=== PATIENT | female | born 1990 | race Caucasian/White ===

== ENCOUNTER → 2020-01-17 16:45 | Outpatient (CLI) | payer OTHER, SELFPAY ==
[2020-01-17 19:59] LABS: HCG,Quantitative 241 mIU/ml (0-5.42)
== END ==
PROVIDERS: Visit Provider Obstetrics & Gynecology
DX: Z32.00 Encounter for pregnancy test, result unknown (principal)
CPT/HCPCS: 36415; 84702

== ENCOUNTER → 2020-02-11 14:49 | Outpatient (CLI) | payer BC, SELFPAY ==
--- NOTE | 2020-02-11 14:53 | US_ITS ---
PROCEDURE: US OB TRANSVAGINAL CLINICAL INDICATION: US OB Dates COMPARISON: No exams were available for comparison FINDINGS: An intrauterine gestational sac is present with a pole with a crown-rump length of 1.66cm correlating to gestational age of 8weeks 1day. heart tones are present with an FHR of 186bpm. Yolk sac is noted. 2 cm left corpus luteum cyst is noted. IMPRESSION: Live intrauterine gestation at 8 weeks 1 day Estimated due date by Ultrasound is 09/21/2020 Dictated by: Julio Cesar Freeman MD 02/11/2020 16:06 Electronically signed by Julio Cesar Freeman MD in [place] 02/11/2020 16:06
== END ==
PROVIDERS: Visit Provider Obstetrics & Gynecology
DX: O26.841 Uterine size-date discrepancy, first trimester (principal)
CPT/HCPCS: 76817

== ENCOUNTER → 2020-03-14 09:39 | Outpatient (CLI) | payer OTHER, SELFPAY ==
[2020-03-14 10:17] LABS: Basophils # 0.1 K/mm3 (0-0.2); Basophils % 0.7 % (0.1-2.0); Eosinophils # 0.7 K/mm3 (0.0-0.4); Hemoglobin 14.7 g/dL (12.2-16.2); Lymphocytes # 1.6 K/mm3 (0.7-4.5); Lymphocytes % 20.1 % (10-50); Mean Corpuscular HGB Conc 35.8 g/dL (31.8-35.4); Mean Corpuscular Hemoglobin 32.3 pg (27.0-31.2); Mean Corpuscular Volume 90.1 fl (81-99); Mean Platelet Volume 7.7 fl (7.4-10.4); Monocytes # 0.3 K/mm3 (0.1-1.0); Monocytes % 3.7 % (1.7-9.3); Neutrophils # 5.3 K/mm3 (1.8-7.8); Neutrophils % 66.3 % (37.0-80.0); Platelet Count 297 K/mm3 (142-424); Red Blood Count 4.55 M/mm3 (4.20-5.40); Red Cell Distribution Width 12.8 % (11.5-17.5); White Blood Count 7.9 K/mm3 (4.8-10.8)
[2020-03-14 10:24] LABS: Amphetamine/Metha Screen,Urine Negative ng/ml (<1000); Benzodiazepines Screen,Urine Negative ng/ml (<200)
[2020-03-14 10:25] LABS: Barbiturates Screen,Urine Negative ng/ml (<200); Methadone Screen,Urine Negative ng/ml (<300)
[2020-03-14 10:26] LABS: Cannabinoid Screen,Urine Negative ng/ml (<50)
[2020-03-14 10:27] LABS: Cocaine Screen,Urine Negative ng/ml (<300); Opiate Screen,Urine Negative ng/ml (<300)
[2020-03-14 10:28] LABS: Phencyclidine Screen,Urine Negative ng/ml (<25)
[2020-03-15 15:28] LABS: HIV Screen 4th Generation wRfx Non Reactive (Non Reactive); Hepatitis B Surface Antigen Negative (Negative); Hepatitis C Antibody 0.2 s/co ratio (0.0-0.9); Rapid Plasma Reagin Ab Titer Non Reactive (NonRea<1:1)
[2020-03-16 08:37] LABS: Rubella Antibodies, IgG 4.73 index (Immune >0.99)
== END ==
PROVIDERS: Visit Provider Obstetrics & Gynecology
DX: Z34.90 Encounter for supervision of normal pregnancy, unspecified, unspecified trimester (principal)
CPT/HCPCS: 36415; 80305; 85025; 86592; 86703; 86762; 86850; 87340; 87380; G0432

== ENCOUNTER → 2020-05-05 10:14 | Outpatient (CLI) | payer OTHER, MEDICAID, SELFPAY ==
--- NOTE | 2020-05-05 10:15 | US_ITS ---
PROCEDURE: US OB /MATERNAL DETAIL CLINICAL INDICATION: US OB Complete COMPARISON: US US OB TRANSVAGINAL from 02/11/2020 FINDINGS: There is a single live fetus present which is in cephalic presentation. heart body motion noted. The cervix is closed and measures 4 cm. The placenta is posterior and grade 1. There is average amount of amniotic fluid.. Complete survey performed and was unremarkable on the submitted images as in PACS. No discrete anomalies identified on survey imaging by technologist. Active fetus. Three-vessel cord with satisfactory umbilical cord insertion. 4- chamber heart noted. Survey of brain & ventricles Unremarkable. Face and neck survey unremarkable. Diaphragm and chest views unremarkable. Abdomen: Both kidneys noted and unremarkable. Stomach noted and satisfactory. Spine: Survey of the spine satisfactory with no anomalies identified nor imaged. Both arms and legs noted. Amniotic Fluid: Adequate. Maternal adnexa: No significant findings. Measurements: Average ultrasound age 20weeks. Gestational Age 20weeks 1day Estimated due date by ultrasound age 0109/22/2020. Estimated weight 332g BPD = 20weeks OFD = 20weeks 2days HC = 19weeks 3days AC = 20weeks 1day FL = 20weeks 2days Growth Percentile= 42Percent% Heart Rate = 143bpm Cerebellum = 20weeks 1day Humerus = HC/AC is 1.13 CI is 0.78 FL/BPD is 0.71 FL/AC is 0.22 IMPRESSION: Live IUP at 20 weeks and cephalic presentation. No obvious anomalies. Please see above for detail Dictated by: Julio Cesar Freeman MD 05/06/2020 09:00 Julio Cesar Freeman MD in [place] 05/06/2020 09:00
== END ==
PROVIDERS: PCP Obstetrics & Gynecology; Visit Provider Obstetrics & Gynecology
DX: Z36.0 Encounter for antenatal screening for chromosomal anomalies (principal)
CPT/HCPCS: 76811

== ENCOUNTER → 2020-06-09 07:14 | Outpatient (CLI) | payer OTHER, MEDICAID, SELFPAY ==
[2020-06-09 07:48] LABS: Glucose,Fasting 80 mg/dl (74-100)
[2020-06-09 10:00] LABS: Glucose 1 Hour 109 mg/dL (74-100)
== END ==
PROVIDERS: Visit Provider Obstetrics & Gynecology
DX: Z34.90 Encounter for supervision of normal pregnancy, unspecified, unspecified trimester (principal)
CPT/HCPCS: 36415; 82951

== ENCOUNTER → 2020-08-15 13:27 | Outpatient (CLI) | payer BC, MEDICAID, SELFPAY ==
--- NOTE | 2020-08-15 13:28 | US_ITS ---
PROCEDURE: US OB FOLLOW UP CLINICAL INDICATION: Growth ALIYAH COMPARISON: No exams were available for comparison FINDINGS: There is a single live fetus present which is in in cephalic presentation. heart and body motion noted. Heart rate is 140 BPM. Placenta is posterior and lateral and grade 2. ALIYAH is 10 cm. Average ultrasound age is 34 weeks 6 days with an estimated weight of 2568 g which is 54th percentile. BPD 34 weeks 2 days OFD 35 weeks 6 days HC 34 weeks 5 days AC 35 weeks 2 days FL 35 weeks 0 days. HC/AC 0.99 CI 77 percent FL/BPD 80 percent FL/AC 22 percent IMPRESSION: Live IUP at 34 weeks 6 days as described above. Estimated weight is 2568 g which is 54% ALIYAH 10 cm Dictated by: Julio Cesar Freeman MD 08/16/2020 06:27 Julio Cesar Freeman MD in [place] 08/16/2020 06:27
== END ==
PROVIDERS: Visit Provider Obstetrics & Gynecology
DX: O16.9 Unspecified maternal hypertension, unspecified trimester (principal); Z3A.35 35 weeks gestation of pregnancy
CPT/HCPCS: 76816

== ENCOUNTER → 2020-08-21 16:48 | Outpatient (CLI) | payer BC, MEDICAID, SELFPAY | PROVIDERS: Visit Provider Obstetrics & Gynecology | DX: Z34.90 Encounter for supervision of normal pregnancy, unspecified, unspecified trimester (principal) | CPT/HCPCS: 86403 ==

== ENCOUNTER → 2020-09-05 16:52 | Outpatient (CLI) | payer BC, OTHER, SELFPAY ==
[2020-09-05 17:31] LABS: Basophils % 0.2 % (0.1-2.0); Eosinophils # 0.4 K/mm3 (0.0-0.4); Hematocrit 34.3 % (37.0-47.0); Hemoglobin 11.7 g/dL (12.2-16.2); Lymphocytes # 1.7 K/mm3 (0.7-4.5); Lymphocytes % 13.4 % (10-50); Mean Corpuscular HGB Conc 34.1 g/dL (31.8-35.4); Mean Corpuscular Hemoglobin 29.6 pg (27.0-31.2); Mean Corpuscular Volume 86.9 fl (81-99); Mean Platelet Volume 8.3 fl (7.4-10.4); Monocytes # 0.5 K/mm3 (0.1-1.0); Neutrophils # 10.1 K/mm3 (1.8-7.8); Neutrophils % 79.3 % (37.0-80.0); Platelet Count 230 K/mm3 (142-424); Red Blood Count 3.95 M/mm3 (4.20-5.40); Red Cell Distribution Width 15.6 % (11.5-17.5); White Blood Count 12.8 K/mm3 (4.8-10.8)
[2020-09-05 17:47] LABS: Alanine Aminotransferase 16 U/L (12-78); Albumin Level 3.2 g/dl (3.5-5.0); Albumin/Globulin Ratio 1.1 (1.1-1.8); Alkaline Phosphatase 186 U/L (38-126); Anion Gap 9.7 mEq/L (5-15); Aspartate Amino Transferase 26 U/L (14-36); Bilirubin,Total 0.3 mg/dl (0.2-1.3); Blood Urea Nitrogen 3 mg/dl (7-17); Calcium 9.3 mg/dl (8.4-10.2); Carbon Dioxide 23 mmol/L (22.0-30.0); Chloride 105 mmol/L (98-107); Estimated Glomerular Filt Rate 146 ml/min (>60); GFR (African American) 177 ML/MIN (>60); Globulin 2.8 g/dL (1.3-3.2); Glucose 129 mg/dl (74-100); Potassium 3.7 mmoL/L (3.5-5.1); Sodium 134 mmol/L (136-145)
[2020-09-05 18:10] LABS: Coronavirus 19 IgG Antibody Negative (Negative); Coronavirus 19 IgM Antibody Negative (Negative)
== END ==
PROVIDERS: Visit Provider Obstetrics & Gynecology
DX: Z01.818 Encounter for other preprocedural examination (principal); Z03.818 Encounter for observation for suspected exposure to other biological agents ruled out; O82 Encounter for cesarean delivery without indication
CPT/HCPCS: 36415; 80053; 85025; 86328; 86850

== ENCOUNTER 2020-09-07 05:15 | Inpatient (IN) | payer BC, OTHER, SELFPAY ==
[2020-09-07] VITALS (7 sets, daily range): BP systolic 104–143; BP diastolic 62–85; PULSE 67–97; RESP 16–20; TEMP 36.1–37.1; O2SAT 96–100; BMI 32.4; BMI 32.3
[2020-09-07 05:59] LABS: Microscopic, Urine URINE MICROSCOPIC (MICROSCOPIC)
[2020-09-07 06:01] LABS: Bilirubin,Urine Negative (Negative); Blood, Urine Negative (Negative); Color,Urine YELLOW (Yellow); Glucose,Urine (UA) Negative (Negative); Ketones,Urine Negative (Negative); Leukocyte Esterase,Urine 3+ (Negative); Nitrate,Urine Negative (Negative); Protein,Urine Negative (Negative); Urobilinogen,Urine 0.2 EU/dl (0.2)
[2020-09-07 06:05] LABS: Appearance,Urine Slightly Cloudy (Clear)
[2020-09-07 06:12] LABS: Amphetamine/Metha Screen,Urine Negative ng/ml (<1000); Barbiturates Screen,Urine Negative ng/ml (<200)
[2020-09-07 06:13] LABS: Benzodiazepines Screen,Urine Negative ng/ml (<200)
[2020-09-07 06:14] LABS: Cannabinoid Screen,Urine Negative ng/ml (<50); Cocaine Screen,Urine Negative ng/ml (<300)
[2020-09-07 06:15] LABS: Methadone Screen,Urine Negative ng/ml (<300)
[2020-09-07 06:16] LABS: Opiate Screen,Urine Negative ng/ml (<300); Phencyclidine Screen,Urine Negative ng/ml (<25)
[2020-09-07 06:23] LABS: Bacteria,Urine 1+ /lpf
--- NOTE | 2020-09-07 07:40 | HMH.OBAPHP ---
OB - H&P: HPI Antepartum - History of Present Illness Chief complaint: Elective repeat CS and tubal ligation History of present illness: 38 0/7, elective repeat CS patient was originally scheduled for surgery at 39 weeks but was moved up to 38 weeks because of decreased movement and low amniotic fluid noted during office appointment 37 5/7 Irregular contractions but no vaginal bleeding or leakage of fluid Desires permanent sterilization with tubal ligation [facility] History I have reviewed the patient's past medical history: Yes Medical History: Reports:: Asthma *Have you ever received a pneumonia vaccine?: No *Have you received a flu vaccine this season?: No Other Surgeries: Yes: (11/11/2013) Amputation: No Fractures: No - *Social History Smoking Status: Never smoker Alcohol Intake: current Alcohol Intake Frequency:: holidays/special occasions only Substance Use Type: denies use *Occupational Status:: employed Household Members: family *Travel in the last 8 weeks: None Family Hx:: Non-contributory : 2 Para: 1 Review of Systems - Review of Systems Review of systems:: pertinent systems reviewed and negative unless documented below - Constitutional Denies chills, Denies fever(s) - Eyes Denies double vision - *Cardiovascular Denies chest pain - *Respiratory Denies cough, Denies shortness of breath - *Genitourinary Denies abnormal vaginal bleeding - *Neurologic Denies headache(s) Meds Home Medications Medication Instructions Recorded Confirmed Type prenat.vits,leonor,[id number] 1 tab PO DAILY 02/14/20 09/07/20 History Allergies Allergy/AdvReac Type Severity Reaction Status Date / Time No Known Allergies Allergy Verified 09/05/20 15:14 OB - H&P: Exam - Physical Exam Vital signs: Temp Pulse Resp BP Pulse Ox 98.7 F 97 H 18 123/65 98 09/07/20 06:26 09/07/20 06:26 09/07/20 06:26 09/07/20 06:26 09/07/20 06:26 - Constitutional no acute distress - Routine HEENT Exam Head: Present: normocephalic, atraumatic Eye: Absent: conjunctival icterus ENT: Present: mucous membranes moist - Routine Neck Exam Present: supple - Routine Respiratory Exam Present: CTA bilaterally - Routine Cardiovascular Exam Present: RRR - Routine Abdominal Exam Present: soft. Absent: tenderness, distended - Routine Extremities Exam Present: edema - Routine Skin Exam Present: dry, warm - Routine Neurological Exam Present: alert, oriented X3 - Routine Psychiatric Exam Present: normal affect OB - Results - Labs Labs: Urine 09/07/20 Range/Units 05:45 Urine Color Yellow (Yellow) Urine Appearance Slightly cloudy (Clear) Urine pH 7.0 (5.0-8.5) Ur Specific [place] 1.020 (1.005-1.030) Urine Protein Negative (Negative) Urine Glucose (UA) Negative (Negative) OB - A/P Antepartum (1) 38 weeks gestation of Status: Acute (2) Decreased movement Status: Acute (3) Oligohydramnios Status: Acute (4) Previous section Status: Acute (5) tubal ligation planned Status: Acute - Additional Plan Additional Information:: Repeat CS with tubal ligation
--- NOTE | 2020-09-07 09:05 | HMH.ANESCL ---
[facility] Anesthesia Checklist - Patient Identification Patient Identification: Arm Band - Structural Data Admitted From: Inpatient Planned Operative Procedure/s: Repeat C/S with BTL Consent for Planned Operative Procedure(s) Verified: Yes Verified Documents: Surgical Consent, History and Physical - NPO Status Verified Time NPO: 00:00 - Additional verifications Anesthesia Reactions: No - Airway Assessment C-Spine Mobility Assessed: Yes TMJ Mobility Assessed: Yes Dentition: Good Dentition - Neurological Assessment Level of Consciousness: Awake, Alert - Anesthesia Plan Anesthesia Risk discussed: Yes Anesthesia Plan: Verified ASA Class: II Anesthesia Type: Spinal [facility] History I have reviewed the patient's past medical history: Yes Medical History: Reports:: Asthma *Have you ever received a pneumonia vaccine?: No *Have you received a flu vaccine this season?: No Anesthesia experience/problems:: nac Other Surgeries: Yes: (11/11/2013) Amputation: No Fractures: No - *Social History Smoking Status: Never smoker Alcohol Intake: current Alcohol Intake Frequency:: holidays/special occasions only Substance Use Type: denies use *Occupational Status:: employed Household Members: family *Travel in the last 8 weeks: None Family Hx:: Non-contributory Para: 1
--- NOTE | 2020-09-07 10:19 | P.OP_ITS ---
Date of procedure: 09/07/20 Pre-op Diagnosis:: 1. 38 wks gestation 2. Decreased movement 3. Oligohydramnios 4. Previous C Section 5. Undesired fertility Post-op Diagnosis:: same Procedure performed:: 1. Repeat Low Transverse C Section 2. Bilateral Tubal Ligation Surgeon:: Elizabeth Montes MD OIL FIELD LABORER:: Vargas Noelle Anesthesia: spinal Estimated blood loss (mL): 800 Operative findings:: vigorous liveborn femal infant grossly normal uterus, fallopian tubes and ovaries Operative note:: The patient was taken to the OR and spinal was administered without difficulty. She was prepped and draped in normal sterile fashion. A pfannenstiel skin incision was made with the scalpel and carried down to the fascia. The fascia was incised in the midline and sharply dissected off the rectus muscles. The muscles were in the midline and the peritoneum was entered sharply and extended bluntly. The Demetrio-O self retaining retractor was placed in the abdomen and a bladder flap was created. The uterus was incised in the lower uterine segment in a transverse fashion and extended bluntly. Amniotomy was performed and clear fluid noted. The infant was delivered in controlled fashion, without complication or shoulder dystocia. The was vigorous at and handed to awaiting pediatricians for evaluation after cord clamped and cut. Cord blood was collected and a cord segment was preserved. The placenta was manually extracted and noted to be intact. The uterus was repaired with 0- vicryl in a running/locked fashion. A second imbricating layer was placed for hemostasis. Gel foam was placed over the lower uterine segment and the bladder flap was closed over this. The peritoneum was closed with 2-0 vicryl in a running fashion. The fascia was closed with #1 vicryl in a running fashion. The subcutaneous fat was closed with 2-0 vicryl in an interrupted fashion. The skin was closed with lashaun. The patient tolerated the procedure well. Sponge, lap, needle and instrument counts were correct x 2. She was taken to PACU awake and in stable condition. Condition: stable Disposition: PACU Specimens:: Placenta Complications:: none
--- NOTE | 2020-09-07 11:16 | P.PN_ITS ---
[facility] Anesthesia Record Part II Discharge Time: 09:35 Destination: Obstetric PACU nurse assessment reviewed?: Yes Patient Condition:: Good Anesthesia Complications:: None Swallowing reflex intact?: Yes Cyanosis?: No Blood Pressure: 130/85 Pulse Rate: 71 Temperature: 97.8 F Mental Status: Alert & Oriented Pain level:: 0 Nausea and/or vomitting:: None Intake, IV Amount: 0
--- NOTE | 2020-09-07 12:38 | HMH.PHAVTE ---
[facility] Pharmacy VTE Monitoring - Patient Demographics Admission date: 09/07/20 Report Date: 09/07/20 Time: 12:38 Allergies/Adverse Reactions: Patient Allergies No Known Allergies Allergy (Verified 09/05/20 15:14) Height: 1.65 m Weight: 88.224 kg Patient Problems: Current Active Problems 38 weeks gestation of (Acute) Decreased movement (Acute) Oligohydramnios (Acute) tubal ligation planned (Acute) Previous section (Acute) - Prophylaxis VTE Prophylaxis Ordered?: Yes Types of VTE Prophylaxis: IPCS Thigh High Location of Applied Device: Bilateral Lower Extremeties
[2020-09-07 13:19] LABS: Microscopic,Cath URINE MICROSCOPIC (MICROSCOPIC)
[2020-09-07 14:02] LABS: Appearance,Urine/Cath CLEAR (Clear); Bilirubin,Cath Negative (Negative); Blood, Urine/Cath Negative (Negative); Color,Urine/Cath YELLOW (Yellow); Glucose,Urine/Cath (UA) Negative (Negative); Ketones,Urine/Cath 1+ (Negative); Leukocyte Esterase,Cath Negative (Negative); Nitrate,Cath Negative (Negative); PH,Urine/Cath 7.5 (5.0-8.5); Protein,Urine/Cath Negative (Negative); Urobilinogen,Cath 0.2 EU/dl (0.2)
[2020-09-07 14:29] LABS: RBC,Urine/Cath Occasional # /hpf (0-3)
[2020-09-08 04:53] VITALS: BP 101/53; PULSE 78; RESP 16; TEMP 36.6; O2SAT 99
[2020-09-08 07:24] LABS: Hematocrit 33.5 % (37.0-47.0); Hemoglobin 11.1 g/dL (12.2-16.2)
[2020-09-08 08:00] VITALS: BP 101/51; PULSE 86; RESP 20; TEMP 37; O2SAT 97
--- NOTE | 2020-09-08 11:04 | P.PN_ITS ---
Internal Medicine - PN: Subj *Date: 09/08/20 *Time: 11:04 Interval history: POD #1 s/p repeat CS and BTL No complaints Tolerating regular diet Ambulating and voiding without difficulty Lochia small and pain control sufficient Exam Vital signs and Labs for Last 24 Hours: Temp Pulse Resp BP Pulse Ox 98.6 F 86 20 101/51 L 97 09/08/20 08:00 09/08/20 08:00 09/08/20 08:00 09/08/20 08:00 09/08/20 08:00 Laboratory Results - last 24 hr 09/07/20 07:50: Urine Color Yellow, Urine Appearance Clear, Urine pH 7.5, Ur Specific [place] 1.010, Urine Protein Negative, Urine Glucose (UA) Negative, Urine Ketones 1+, Urine Blood Negative, Urine Nitrate Negative, Urine Bilirubin Negative, Urine Urobilinogen 0.2, Ur Leukocyte Esterase Negative, Urine RBC Occasional, Urine WBC 3-5, Ur Squamous Epith Cells 3-5 09/08/20 06:55: Hgb 11.1 L, Hct 33.5 L I & O for Last 24 hours: Intake & Output 09/05/20 09/06/20 09/07/20 09/08/20 11:59 11:59 11:59 11:59 Intake Total 0 / 0 Output Total 800 / 800 Balance 0 / 0 -800 / -800 Weight 194 lb 8 oz Microbiology Reports for the Last 24 Hours: Microbiology 09/07/20 05:45 Urine,Clean Catch Urine Culture - Preliminary Narrative: CONSTITUTIONAL: no acute distress HEENT: mucous membranes moist PULMONARY: breathing unlabored without audible wheezes CV: no tachycardia or visible JVD; normal LE peripheral pulses ABD: soft, ND; appropriately tender but no rebound/guarding : fundus firm at/below umbilicus SKIN: incision well approximated with no drainage, erythema or induration EXT: 1+ edema LEs NEURO: alert/oriented, no altered mental status PSYCH: appropriate mood and demeanor without anxiety/depression Assessment and Plan (1) 38 weeks gestation of Status: Acute Category: Medical Code(s): Z3A.38 - 38 weeks gestation of (2) Decreased movement Status: Acute Category: Medical Code(s): O36.8190 - Decreased movements, unspecified trimester, not applicable or unspecified (3) Oligohydramnios Status: Acute Category: Medical Code(s): O41.00X0 - Oligohydramnios, unspecified trimester, not applicable or unspecified (4) Previous section Status: Acute Category: Surgical Code(s): Z98.891 - History of uterine scar from previous surgery (5) tubal ligation planned Status: Acute Category: Medical - Assessment and plan all Dx Assessment and Plan for all problems:: Routine postop/ care Continue PNV with FeSO4 Anticipate discharge home tomorrow
[2020-09-08 12:00] VITALS: BP 100/48; PULSE 82; RESP 18; TEMP 36.7; O2SAT 100
--- NOTE | 2020-09-09 10:20 | HMH.OBDCSM ---
General - General Admission date:: 09/07/20 Discharge date: 09/09/20 HPI - History of Present Illness History of present illness: She is a 30-year-old 2 para 1 who was 38 weeks gestational age. She was seen a couple of days prior to her and had oligohydramnios and decreased movement. She has had a previous section and as result of oligohydramnios she was delivered early. Hospital Course Hospital Course: On September 07, 2019 when she underwent a repeat lower segment transverse section and delivered a liveborn male child at 8:07 AM. The baby had Apgars of 7 at 1 minute and 9 at 5 minutes. She had a bilateral tubal ligation at the time of her . She has done well and has remained afebrile with her hospitalization. She is eating and drinking and ambulating. She is bottlefeeding and breast-feeding. Her lochia is normal. Her pain is well controlled. Her incision is clean and dry. She has O+ blood, she is rubella immune and was group B streptococcus negative. Her early head start director Dr. Dupont. She will be discharged home to follow-up with Dr. Montes in approximately 3 weeks time. She has had her lashaun removed and Steri-Strips applied. She was given the usual instructions with respect to limiting her activity, driving and sexual activity. Her condition on discharge is stable and improved. Rhogam Administration: Not Indicated Objective Vital signs: Temp Pulse Resp BP Pulse Ox 98.0 F 82 18 100/48 L 100 09/08/20 12:00 09/08/20 12:00 09/08/20 12:00 09/08/20 12:00 09/08/20 12:00 no acute distress - *Routine HEENT Exam Head: Present: normocephalic Eye: Present: EOMI, PERRL ENT: Present: mucous membranes moist DS: Diagnosis - Discharge Diagnosis (1) 38 weeks gestation of Status: Acute (2) Decreased movement Status: Acute (3) Oligohydramnios Status: Acute (4) Previous section Status: Acute (5) tubal ligation planned Status: Acute Discharge Plan - Patient Discharge Instructions ACTIVITY: No heavy lifting DIET: continue same diet Additional Instructions: no driving, no heavy lifting and nothing in the vagina for 6 weeks Patient Instructions: Depression, Hemorrhage, DI for , DI for Pre-eclampsia, DI for Postoperative Pain, Preventing the Spread of Coronavirus Discharge Instructions - Follow up Plan Follow up with: Elizabeth Montes MD [Staff Physician] - 09/22/20 11:00 am Disposition: Home, Self-Custodial Medications: Home Medications Medication Instructions Recorded Confirmed Type prenat.vits,leonor,[id number] 1 tab PO DAILY 02/14/20 09/07/20 History Oxycodone HCl/Acetaminophen 1 tab PO Q4-6H PRN #12 tab 09/09/20 Rx [Percocet 5/325mg tablet] Prescriptions/Medication Reconciliation: New Oxycodone HCl/Acetaminophen [Percocet 5/325mg tablet] 1 tab PO Q4-6H PRN #12 tab PRN Reason: Severe Pain Continued prenat.vits,leonor,[id number] 1 tab PO DAILY - Problem Reconciliation Problems Reviewed?: Yes
== END 2020-09-09 11:45 | disposition home or self-care (01) | DRG 784 ==
PROVIDERS: Admitting Provider Obstetrics & Gynecology; Visit Provider Obstetrics & Gynecology
PROC: 10D00Z1 Extraction of Products of Conception, Low, Open Approach (ICD-10-PCS; CPT 59514; principal; 2020-09-07 07:30)
DX: O36.8130 Decreased fetal movements, third trimester, not applicable or unspecified (principal); O41.03X0 Oligohydramnios, third trimester, not applicable or unspecified; Z3A.38 38 weeks gestation of pregnancy; Z37.0 Single live birth; O34.211 Maternal care for low transverse scar from previous cesarean delivery; N85.8 Other specified noninflammatory disorders of uterus; Z30.2 Encounter for sterilization
CPT/HCPCS: 59514; 58611; 59025; 80305; 81001; 85014; 85018; 86850; 87086; J0131; J2405

== ENCOUNTER 2020-10-08 12:23 | Emergency (ER) | payer BC, OTHER, SELFPAY ==
[2020-10-08 12:24] VITALS: BP 102/60; PULSE 112; RESP 18; TEMP 37.4; O2SAT 100; BMI 29.0
--- NOTE | 2020-10-08 12:39 | HMH.EDGENADL ---
ED Disposition Clinical Impression: Dehydration Disposition: Home, Self-Care Condition on Discharge: Good Additional Instructions: Please drink plenty of clear fluids. Return immediately if any generalized malaise, concern for dehydration, weakness, or other new concerning symptoms. Referrals: Mir Dupont MD [Primary Care Provider] - - Critical Care Critical Care Time: No Attestation: On 10/08/20, the high probability of a clinically significant, sudden or life threatening deterioration of the following system(s) required my full and direct attention, intervention and personal management. The time I documented below is in addition to time spent performing reported procedures but includes the following listed in this critical care notation. Medical Decision Making - Medical Records Medical records reviewed: Yes: I reviewed the patient's medical records. - Helder Inquiry Pt receiving controlled substance: No Vital Signs: 10/08/20 12:24 10/08/20 13:44 10/08/20 14:16 Temperature 99.3 F Temperature Source Oral Pulse Rate [Right Radial] 112 H 107 H 117 H Respiratory Rate 18 Blood Pressure [Right Arm] 102/60 L 124/78 119/57 L Blood Pressure Mean [Right Arm] 74 93 77 Blood Pressure Source [Right Arm] Automatic Cuff Automatic Cuff Automatic Cuff Blood Pressure Position [Right Arm] Sitting Sitting Sitting 02 Sat by Pulse Oximetry 100 100 98 Oxygen Delivery Method Room Air Room Air Room Air 10/08/20 15:05 Temperature Temperature Source Pulse Rate [Right Radial] 112 H Respiratory Rate Blood Pressure [Right Arm] 104/55 L Blood Pressure Mean [Right Arm] 71 Blood Pressure Source [Right Arm] Automatic Cuff Blood Pressure Position [Right Arm] Sitting 02 Sat by Pulse Oximetry 97 Oxygen Delivery Method Room Air - Lab Data Lab Results 10/08/20 12:39: WBC 13.6 H, RBC 5.26, Hgb 14.8, Hct 46.3, MCV 88.0, MCH 28.2, MCHC 32.1, RDW 14.6, Plt Count 311, MPV 7.0 L, Neut % (Auto) 86.1 H, Lymph % (Auto) 5.3 L, [place] % (Auto) 5.4, Eos % (Auto) 3.0, Baso % (Auto) 0.2, Neut # (Auto) 11.7 H, Lymph # (Auto) 0.7, [place] # (Auto) 0.7, Eos # (Auto) 0.4, Baso # (Auto) 0.0, Total Counted 100, Neutrophils % (Manual) 87 H, Lymphocytes % (Manual) 5 L, Monocytes % (Manual) 6, Eosinophils % (Manual) 2, Platelet Estimate Normal, RBC Morphology Normal 10/08/20 12:39: Sodium 138, Potassium 4.0, Chloride 105, Carbon Dioxide 27, Anion Gap 10.0, BUN 15, Creatinine 0.80, Estimated Creat Clear 126, Estimated GFR 85, Est GFR ( Amer) 103, Glucose 95, Calcium 9.2, Total Bilirubin 0.6, AST 40 H, ALT 45, Alkaline Phosphatase 163 H, Total Protein 7.9 D, Albumin 4.3, Globulin 3.6 H, Albumin/Globulin Ratio 1.2 10/08/20 13:41: Urine Color Yellow, Urine Appearance Clear, Urine pH 7.5, Ur Specific [place] 1.015, Urine Protein Negative, Urine Glucose (UA) Negative, Urine Ketones Negative, Urine Blood Negative, Urine Nitrate Negative, Urine Bilirubin Negative, Urine Urobilinogen 0.2, Ur Leukocyte Esterase Trace, Urine RBC None, Urine WBC Occasional, Ur Squamous Epith Cells 5-10, Urine Bacteria None Result diagrams: 10/08/20 12:39 10/08/20 12:39 Orders (Tests/Meds): ED MEDICATIONS Discontinued Medications Generic Name Dose Route Start Last Admin Trade Name Georges PRN Reason Stop Dose Admin Acetaminophen 650 mg 10/08/20 15:14 10/08/20 15:18 Acetaminophen 325mg Tab PO 10/08/20 15:15 650 mg ONCE ONE Administration Sodium Chloride 1,000 mls @ 999 mls/hr 10/08/20 12:45 10/08/20 12:52 Sod Chlor 0.9% 1000ml Bag IV 10/08/20 13:45 999 mls/hr .Q1H1M ЕЛЕНА Administration Lactated Ringer's 1,000 mls @ 999 mls/hr 10/08/20 15:15 10/08/20 15:18 Lactated Ringer's 1000 Ml Bag IV 10/08/20 16:15 999 mls/hr .Q1H1M ЕЛЕНА Administration Ibuprofen 400 mg 10/08/20 15:07 10/08/20 15:18 Ibuprofen 400 Mg Tablet PO 10/08/20 15:08 400 mg ONCE ONE Administration Ondansetron HCl 4 mg 10/08/20 13:58 10/08/20 13:59 Ondanset
[2020-10-08 12:45] VITALS: BMI 29.0
[2020-10-08 13:02] LABS: Basophils % 0.2 % (0.1-2.0); Eosinophils # 0.4 K/mm3 (0.0-0.4); Hematocrit 46.3 % (37.0-47.0); Hemoglobin 14.8 g/dL (12.2-16.2); Lymphocytes # 0.7 K/mm3 (0.7-4.5); Lymphocytes % 5.3 % (10-50); Mean Corpuscular HGB Conc 32.1 g/dL (31.8-35.4); Mean Corpuscular Hemoglobin 28.2 pg (27.0-31.2); Monocytes # 0.7 K/mm3 (0.1-1.0); Monocytes % 5.4 % (1.7-9.3); Neutrophils # 11.7 K/mm3 (1.8-7.8); Neutrophils % 86.1 % (37.0-80.0); Platelet Count 311 K/mm3 (142-424); Red Blood Count 5.26 M/mm3 (4.20-5.40); Red Cell Distribution Width 14.6 % (11.5-17.5); White Blood Count 13.6 K/mm3 (4.8-10.8)
[2020-10-08 13:03] LABS: Chloride 105 mmol/L (98-107)
[2020-10-08 13:04] LABS: MANUAL DIFFERENTIAL MANUAL DIFFERENTIAL (MANUAL DIFF); Sodium 138 mmol/L (136-145)
[2020-10-08 13:06] LABS: Alanine Aminotransferase 45 U/L (12-78); Alkaline Phosphatase 163 U/L (38-126); Aspartate Amino Transferase 40 U/L (14-36); Bilirubin,Total 0.6 mg/dl (0.2-1.3); Blood Urea Nitrogen 15 mg/dl (7-17); Creatinine Clearance Estimated 126 mL/min (50-200); Estimated Glomerular Filt Rate 85 ml/min (>60); GFR (African American) 103 ML/MIN (>60)
[2020-10-08 13:07] LABS: Albumin Level 4.3 g/dl (3.5-5.0); Albumin/Globulin Ratio 1.2 (1.1-1.8); Calcium 9.2 mg/dl (8.4-10.2); Carbon Dioxide 27 mmol/L (22.0-30.0); Globulin 3.6 g/dL (1.3-3.2); Glucose 95 mg/dl (74-100); Total Protein,Serum 7.9 g/dl (6.3-8.2)
[2020-10-08 13:12] LABS: Eosinophils % 2 % (0-3); Lymphocytes % 5 % (10-50); Monocytes % 6 % (2-9); Neutrophils % 87 % (42-76); Total Cells Counted 100
[2020-10-08 13:13] LABS: Platelet Estimate Normal; RBC Morphology Normal
[2020-10-08 13:44] VITALS: BP 124/78; PULSE 107; O2SAT 100
[2020-10-08 13:51] LABS: Microscopic, Urine URINE MICROSCOPIC (MICROSCOPIC)
[2020-10-08 13:52] LABS: Appearance,Urine CLEAR (Clear); Bilirubin,Urine Negative (Negative); Blood, Urine Negative (Negative); Color,Urine YELLOW (Yellow); Glucose,Urine (UA) Negative (Negative); Ketones,Urine Negative (Negative); Leukocyte Esterase,Urine TRACE (Negative); Nitrate,Urine Negative (Negative); PH,Urine 7.5 (5.0-8.5); Protein,Urine Negative (Negative); Specific Gravity, Urine 1.015 (1.005-1.030); Urobilinogen,Urine 0.2 EU/dl (0.2)
[2020-10-08 13:59] LABS: WBC,Urine Occasional #/hpf (0-3)
[2020-10-08 14:16] VITALS: BP 119/57; PULSE 117; O2SAT 98
[2020-10-08 15:05] VITALS: BP 104/55; PULSE 112; O2SAT 97
--- NOTE | 2020-10-08 15:26 | PC.NURSE ---
pt sitting up in wheelchair eating sandwich
[2020-10-08 16:40] VITALS: BP 106/51; PULSE 104; RESP 18; TEMP 37.4; O2SAT 97
== END 2020-10-08 16:40 | disposition home or self-care (01) ==
PROVIDERS: Emergency Provider Emergency Medicine; PCP Family Medicine
DX: E86.0 Dehydration (principal); J45.909 Unspecified asthma, uncomplicated; G43.709 Chronic migraine without aura, not intractable, without status migrainosus; Z79.899 Other long term (current) drug therapy
CPT/HCPCS: 80053; 81001; 85007; 85025; 96365; 96367; 96375; 99283; J2405

== ENCOUNTER → 2021-05-09 19:49 | Outpatient (CLI) | payer BC, SELFPAY | PROVIDERS: Visit Provider Nurse Practitioner Family | DX: Z20.822 Contact with and (suspected) exposure to COVID-19 (principal); J02.9 Acute pharyngitis, unspecified | CPT/HCPCS: U0003 ==

== ENCOUNTER 2021-08-10 07:41 | Emergency (ER) | payer BC, SELFPAY ==
[2021-08-10 07:41] VITALS: BP 120/78; PULSE 86; RESP 16; TEMP 36.8; O2SAT 97; BMI 29.5
[2021-08-10 08:00] VITALS: BP 118/68; PULSE 96; O2SAT 97
[2021-08-10 08:08] LABS: Basophils # 0.1 K/mm3 (0-0.2); Basophils % 1.1 % (0.1-2.0); Eosinophils # 0.1 K/mm3 (0.0-0.4); Eosinophils % 1.8 % (0.1-12.0); Hematocrit 44.3 % (37.0-47.0); Hemoglobin 15.2 g/dL (12.2-16.2); Lymphocytes # 0.8 K/mm3 (0.7-4.5); Lymphocytes % 13.8 % (10-50); Mean Corpuscular HGB Conc 34.2 g/dL (31.8-35.4); Mean Corpuscular Hemoglobin 31.2 pg (27.0-31.2); Mean Platelet Volume 7.1 fl (7.4-10.4); Monocytes # 0.2 K/mm3 (0.1-1.0); Monocytes % 2.9 % (1.7-9.3); Neutrophils # 4.9 K/mm3 (1.8-7.8); Neutrophils % 80.4 % (37.0-80.0); Platelet Count 344 K/mm3 (142-424); Red Blood Count 4.87 M/mm3 (4.20-5.40); White Blood Count 6.1 K/mm3 (4.8-10.8)
[2021-08-10 08:15] LABS: Chloride 109 mmol/L (98-107); Potassium 3.9 mmoL/L (3.5-5.1); Sodium 142 mmol/L (136-145)
[2021-08-10 08:18] LABS: Alanine Aminotransferase 15 U/L (12-78); Albumin Level 4.3 g/dl (3.5-5.0); Albumin/Globulin Ratio 1.5 (1.1-1.8); Alkaline Phosphatase 74 U/L (38-126); Anion Gap 11.9 mEq/L (5-15); Aspartate Amino Transferase 24 U/L (14-36); Bilirubin,Total 0.2 mg/dl (0.2-1.3); Blood Urea Nitrogen 13 mg/dl (7-17); Carbon Dioxide 25 mmol/L (22.0-30.0); Creatinine Clearance Estimated 169 mL/min (50-200); Estimated Glomerular Filt Rate 117 ml/min (>60); GFR (African American) 142 ML/MIN (>60); Globulin 2.9 g/dL (1.3-3.2); Total Protein,Serum 7.2 g/dl (6.3-8.2)
[2021-08-10 08:19] LABS: Calcium 9.1 mg/dl (8.4-10.2); Glucose 104 mg/dl (74-100)
[2021-08-10 08:30] LABS: Ethyl Alcohol < 10 mg/dl (0-10)
--- NOTE | 2021-08-10 08:47 | HMH.EDGENADL ---
ED Disposition Clinical Impression: Dehydration symptoms Disposition: Home, Self-Care Condition on Discharge: Good Referrals: Mir Dupont MD [Primary Care Provider] - - Critical Care Critical Care Time: No Attestation: On 08/10/21, the high probability of a clinically significant, sudden or life threatening deterioration of the following system(s) required my full and direct attention, intervention and personal management. The time I documented below is in addition to time spent performing reported procedures but includes the following listed in this critical care notation. Medical Decision Making - Helder Inquiry Pt receiving controlled substance: No Vital Signs: 08/10/21 07:41 08/10/21 08:00 Temperature 98.2 F Temperature Source Oral Pulse Rate 96 H Pulse Rate [Right Radial] 86 Respiratory Rate 16 Blood Pressure 118/68 Blood Pressure [Right Arm] 120/78 Blood Pressure Mean 89 Blood Pressure Mean [Right Arm] 92 Blood Pressure Source [Right Arm] Automatic Cuff Blood Pressure Position [Right Arm] Sitting 02 Sat by Pulse Oximetry 97 97 Oxygen Delivery Method Room Air - Lab Data Lab Results 08/10/21 07:56: WBC 6.1, RBC 4.87, Hgb 15.2, Hct 44.3, MCV 91.0, MCH 31.2, MCHC 34.2, RDW 12.0, Plt Count 344, MPV 7.1 L, Neut % (Auto) 80.4 H, Lymph % (Auto) 13.8, [place] % (Auto) 2.9, Eos % (Auto) 1.8, Baso % (Auto) 1.1, Neut # (Auto) 4.9, Lymph # (Auto) 0.8, [place] # (Auto) 0.2, Eos # (Auto) 0.1, Baso # (Auto) 0.1 08/10/21 07:56: Sodium 142, Potassium 3.9, Chloride 109 H, Carbon Dioxide 25, Anion Gap 11.9, BUN 13, Creatinine 0.60, Estimated Creat Clear 169, Estimated GFR 117, Est GFR ( Amer) 142, Glucose 104 H, Calcium 9.1, Total Bilirubin 0.2, AST 24, ALT 15, Alkaline Phosphatase 74, Total Protein 7.2, Albumin 4.3, Globulin 2.9, Albumin/Globulin Ratio 1.5 08/10/21 07:56: Plasma/Serum Alcohol < 10 Result diagrams: 08/10/21 07:56 08/10/21 07:56 Orders (Tests/Meds): ED MEDICATIONS Discontinued Medications Generic Name Dose Route Start Last Admin Trade Name Georges PRN Reason Stop Dose Admin Sodium Chloride 1,000 mls @ 999 mls/hr 08/10/21 07:58 08/10/21 08:00 Sod Chlor 0.9% 1000ml Bag IV 08/10/21 08:58 999 mls/hr .Q1H1M ONE Administration Ondansetron HCl 4 mg 08/10/21 07:57 08/10/21 08:00 Ondansetron 4mg/2ml Vial IV 08/10/21 07:58 4 mg ONCE ONE Administration - Reevaluation(s) Time: 09:25 Reevaluation #1: Patient reports resolution of symptoms. She wishes to be discharged. Medical Decision Narrative: Patient is a healthy 31-year-old female presenting for chief complaint of nausea and vomiting and malaise s/p EtoH ingestion yesterday evening. [place], patient is hemodynamically stable and clinically sober. Differential diagnosis includes, but is not limited to, veisalgia, gastritis, pancreatitis, other intraabdominal pathology. Patient was evaluated with a CMP, alcohol level and treated with 1 L of IV fluids and Zofran. On my exam, patient is already reporting significant improvement. On repeat reassessment, patient reports resolution of symptoms. Presentation is consistent with veisalgia. She was given short course of Rx for zofran, counseled on supportive care and discharged in a stable condition. General Adult HPI - General Chief complaint: Nausea/Vomiting/Diarrhea Stated complaint: possible dehydration, nausea Time Seen by Provider: 08/10/21 08:10 Mode of Arrival: Ambulatory Limitations: No Limitations Description of Symptoms (Recalled from ER Triage Doc. by RN): Pt c/o nausea since waking up at 0400 this AM. Pt states that she has tried to induce vomiting and has been unsuccessful. Pt does advise that she was at an annual [employer] last night and drank some ETOH, which she doesn't do much of. Pt states that her stated that she did vomit once last night, but she hasn't been able to since. - History of Present Illness HPI narrative: O[place]a
[2021-08-10 09:35] VITALS: BP 116/61; PULSE 83; RESP 16; TEMP 36.7; O2SAT 99
== END 2021-08-10 09:35 | disposition home or self-care (01) ==
PROVIDERS: Emergency Medicine; Emergency Provider Emergency Medicine; PCP Family Medicine
DX: E86.0 Dehydration (principal); R11.2 Nausea with vomiting, unspecified
CPT/HCPCS: 80053; 85025; 96365; 96375; 99282; J2405

== ENCOUNTER → 2021-09-20 19:30 | Outpatient (CLI) | payer BC, SELFPAY | PROVIDERS: Visit Provider Nurse Practitioner Family | DX: U07.1 COVID-19 (principal); J02.9 Acute pharyngitis, unspecified | CPT/HCPCS: C9803; U0003; U0005 ==

== ENCOUNTER 2024-05-06 06:03 | Emergency (ER) | payer BC, SELFPAY ==
[2024-05-06 06:04] VITALS: BP 135/60; PULSE 131; RESP 16; TEMP 36.9; O2SAT 97; BMI 31.2
--- NOTE | 2024-05-06 06:14 | ED_ITS ---
Discharge Plan Disposition Patient Disposition: Home, Self-Care Prescriptions Prescriptions: New cefdinir 300 mg capsule 300 mg PO BID 10 Days Qty: 20 0RF Referrals Follow up/Referrals: Mir Dupont MD [Primary Care Provider] - See instructions Activity Restrictions/Add. Instructions Additional Instructions/Restrictions: Call your family doctor to establish care for this visit to the emergency department and schedule follow-up within 48 hours to ensure improvement. If you have any worsening of your condition or any other concerning signs or symptoms, return to the emergency department or your primary care doctor for further evaluation. Cefdinir twice daily for 10 days Clinical Impressions Clinical Impression: Body aches, Chills, Pyelonephritis Print Language Print Language: Fijian Discharge ED Provider: Lucas Adkins General Adult HPI <Mikey Bailon MD - Last Filed: 05/06/24 07:04> General Chief complaint: PAIN Stated complaint: woke up freezing, soa, chest pain Time Seen by Provider: 05/06/24 06:10 History of Present Illness HPI narrative: 34-year-old female with history of asthma and hypothyroidism presents for chills. She reports that she woke up freezing and has been chilling and cannot stop. That she had a frontal sinus-like headache earlier but that is improving. She reports that she had some left-sided flank pain and urinary frequency yesterday but the left-sided pain has gone away. She reports generalized back pain. Denies any shortness of breath out of the normal for her. Related Data Previous Rx's ?Medication ?Instructions ?Recorded cefdinir 300 mg capsule 300 mg PO BID 10 days #20 caps 05/06/24 Allergies Allergy/AdvReac Type Severity Reaction Status Date / Time No Known Allergies Allergy Verified 09/20/21 11:50 PFSH <Mikey Bailon MD - Last Filed: 05/06/24 07:04> [facility] Disclaimer: The information contained in this section may have been updated after the patient was seen, as this information can be updated by other users. Social History Smoking Status: Never smoker alcohol intake: current alcohol intake frequency: holidays/special occasions only substance use type: denies use current occupational status: employed Travel in the last 8 weeks: None household members: family <Mikey Bailon MD - Last Filed: 05/06/24 07:04> ROS Obtained: Yes All systems reviewed & no additional complaints except as documented Physical Exam <Mikey Bailon MD - Last Filed: 05/06/24 07:04> General General appearance: alert and in no apparent distress Head Head exam: atraumatic and normocephalic Eye Eye exam: Present normal appearance, PERRL and EOMI ENT ENT exam: Present normal oropharynx and normal external ear exam Neck Neck exam: Present normal inspection and full ROM Chest Chest inspection: Present normal inspection and symmetric chest wall rise; Absent tenderness Respiratory Respiratory exam: Present normal lung sounds bilaterally; Absent respiratory distress Cardiovascular Cardiovascular exam: Present regular rate and normal rhythm Abdominal Exam Abdominal exam: Present soft; Absent distention, tenderness or guarding Extremities Exam Extremities exam: Present normal inspection; Absent edema or joint swelling Back Exam Back exam: Present normal inspection; Absent tenderness Neurological Exam Neurological exam: Present alert and oriented X3; Absent motor sensory deficit Psychiatric Psychiatric exam: Present normal affect and normal mood Skin Skin exam: Present warm, dry and normal color Lymphatic Lymphatic Findings: no adenopathy Medical Decision Making <Mikey Bailon MD - Last Filed: 05/06/24 07:04> Medical Records Medical records reviewed: Yes I reviewed the patient's medical records. Helder Inquiry Pt receiving controlled substance: No Helder was queried for this patient: No Vital Signs: 05/06/24 06:04 05/06/24 07:11 05/06/24 07:33 Temperature 98.4 F Temperature Source Oral Pulse Rate 111 H 111 H Pulse Rate [Right] 131 H Respiratory Rate 16 Blood Pressure 102/51 L 125/69 Blood Pressure [Right Arm] 135/60 Blood Pressure Mean [Right Arm] 85 Blood Pressure Source [Right Arm] Automatic Cuff Blood Pressure Position [Right Arm] Sitting 02 Sat by Pulse Oximetry 97 96 98 Oxygen Delivery Method Room Air Room Air Room Air 05/06/24 08:00 Temperature Temperature Source Pulse Rate 107 H Pulse Rate [Right] Respiratory Rate Blood Pressure 101/52 L Blood Pressure [Right Arm] Blood Pressure Mean [Right Arm] Blood Pressure Source [Right Arm] Blood Pressure Position [Right Arm] 02 Sat by Pulse Oximetry 98 Oxygen Delivery Method Room Air Lab Data Lab results reviewed: Yes I reviewed the patient's lab results. Lab Results 05/06/24 06:10: SARS-CoV-2 (PCR) Not detected, Influenza A Untype (PCR) Not detected, Influenza Type B (PCR) Not detected 05/06/24 07:27: Urine Color Yellow, Urine Appearance Cloudy, Urine pH 6.5, Ur Specific [place] 1.010, Urine Protein 2+ A, Urine Glucose (UA) Negative, Urine Ketones Negative, Urine Blood 3+ A, Urine Nitrate Negative, Urine Bilirubin Negative, Urine Urobilinogen 1.0, Ur Leukocyte Esterase 2+ A, Urine RBC 5-10, Urine WBC 20-50, Ur Squamous Epith Cells 5-10, Urine Bacteria 1+ 05/06/24 07:31: WBC 5.5, RBC 4.38, Hgb 13.0, Hct 41.1, MCV 93.7, MCH 29.7, MCHC 31.7 L, RDW 14.7, Plt Count 284, MPV 7.2 L, Neut % (Auto) 92.7 H, Lymph % (Auto) 3.9 L, [place] % (Auto) 1.1 L, Eos % (Auto) 2.0, Baso % (Auto) 0.4, Neut # (Auto) 5.1, Lymph # (Auto) 0.2 L, [place] # (Auto) 0.1, Eos # (Auto) 0.1, Baso # (Auto) 0.0, Sodium 135 L, Potassium 3.6, Chloride 109 H, Carbon Dioxide 25, Anion Gap 4.6 L, BUN 9, Creatinine 0.70, Estimated Creat Clear 149, Estimated GFR 96, Est GFR ( Amer) 117, Glucose 94, Calcium 8.5, Total Bilirubin 1.1, AST 40 H, ALT 38, Alkaline Phosphatase 78, Total Protein 6.4, Albumin 3.4 L, Globulin 3.0, Albumin/Globulin Ratio 1.1, Lipase 59, HCG, Quant < 2 05/06/24 07:37: Lactate 1.7 05/06/24 07:31 05/06/24 07:31 Orders (Tests/Meds): ED MEDICATIONS Generic Name Dose Route Start Last Admin Trade Name Freq PRN Reason Stop Dose Admin Ceftriaxone Sodium 1 gm/ 50 mls @ 100 mls/hr 05/06/24 08:30 05/06/24 08:24 Sodium Chloride IV 05/06/24 08:59 100 mls/hr ONCE ONE Administration Discontinued Medications Generic Name Dose Route Start Last Admin Trade Name Georges PRN Reason Stop Dose Admin Acetaminophen 1,000 mg 05/06/24 06:20 05/06/24 06:24 Acetaminophen 500mg Tab PO 05/06/24 06:21 1,000 mg ONCE ONE Administration Dexamethasone Sodium Phosphate 10 mg 05/06/24 07:52 05/06/24 08:04 Dexamethasone 4mg/Ml 1ml Vial IV 05/06/24 07:53 10 mg ONCE ONE Administration Diphenhydramine HCl 25 mg 05/06/24 07:46 05/06/24 08:03 Diphenhydramine 50mg/Ml Vial IV 05/06/24 07:47 25 mg ONCE ONE Administration Lactated Ringer's 1,000 mls @ 999 mls/hr 05/06/24 07:24 05/06/24 07:30 Lactated Ringer's 1000 Ml Bag IV 05/06/24 08:24 999 mls/hr .Q1H1M ONE Administration Ketorolac Tromethamine 30 mg 05/06/24 06:20 05/06/24 06:46 Ketorolac 30mg/Ml Vial IV 05/06/24 06:21 Not Given ONCE ONE Ketorolac Tromethamine 30 mg 05/06/24 06:20 05/06/24 06:25 Ketorolac 30mg/Ml Vial IM 05/06/24 06:21 30 mg ONCE ONE Administration Prochlorperazine Edisylate 10 mg 05/06/24 07:46 05/06/24 08:03 Prochlorperazine 10mg/2ml Vial IV 05/06/24 07:47 10 mg ONCE ONE Administration ORDERS Category Date Time Status Beta HCG, Quant [HCG,Quantitative] Stat Lab 05/06/24 07:31 Completed CBC w/Auto Diff [Complete Blood Count Auto Diff] Stat Lab 05/06/24 07:31 Results CMP [Comprehensive Metabolic Panel] Stat Lab 05/06/24 07:31 Completed Lactic Acid Stat Lab 05/06/24 07:37 Completed Lipase Stat Lab 05/06/24 07:31 Completed Rapid PCR Covid and Flu A/B Stat Lab 05/06/24 06:10 Completed UA [Urinalysis and Microscopic] Stat Lab 05/06/24 07:27 Completed Urine Culture Stat Micro 05/06/24 07:27 Received Medical Decision Narrative: 34-year-old female with history of asthma and hypothyroidism presents with 1 day of chills, body aches, she had some urinary symptoms yesterday. History was obtained via interactive discussion with patient. On arrival, patient is [afebrile, hemodynamically stable but mildly tachycardic, satting appropriately, alert, oriented x4, GCS 15], moving all extremities spontaneously. Full physical exam performed and significant for clear lungs bilaterally, no flank pain Differential includes but is not limited to COVID, flu, viral illness, UTI, pyelonephritis. Patient was given Tylenol and IM Toradol for symptomatic management and correction of underlying abnormalities. Workup initiated including COVID flu swab, UA. At this time care handed off to oncoming physician <Lucas Adkins MD - Last Filed: 05/06/24 08:45> Vital Signs: 05/06/24 06:04 05/06/24 07:11 05/06/24 07:33 Temperature 98.4 F Temperature Source Oral Pulse Rate 111 H 111 H Pulse Rate [Right] 131 H Respiratory Rate 16 Blood Pressure 102/51 L 125/69 Blood Pressure [Right Arm] 135/60 Blood Pressure Mean [Right Arm] 85 Blood Pressure Source [Right Arm] Automatic Cuff Blood Pressure Position [Right Arm] Sitting 02 Sat by Pulse Oximetry 97 96 98 Oxygen Delivery Method Room Air Room Air Room Air 05/06/24 08:00 Temperature Temperature Source Pulse Rate 107 H Pulse Rate [Right] Respiratory Rate Blood Pressure 101/52 L Blood Pressure [Right Arm] Blood Pressure Mean [Right Arm] Blood Pressure Source [Right Arm] Blood Pressure Position [Right Arm] 02 Sat by Pulse Oximetry 98 Oxygen Delivery Method Room Air Lab Data Lab Results 05/06/24 06:10: SARS-CoV-2 (PCR) Not detected, Influenza A Untype (PCR) Not detected, Influenza Type B (PCR) Not detected 05/06/24 07:27: Urine Color Yellow, Urine Appearance Cloudy, Urine pH 6.5, Ur Specific [place] 1.010, Urine Protein 2+ A, Urine Glucose (UA) Negative, Urine Ketones Negative, Urine Blood 3+ A, Urine Nitrate Negative, Urine Bilirubin Negative, Urine Urobilinogen 1.0, Ur Leukocyte Esterase 2+ A, Urine RBC 5-10, Urine WBC 20-50, Ur Squamous Epith Cells 5-10, Urine Bacteria 1+ 05/06/24 07:31: WBC 5.5, RBC 4.38, Hgb 13.0, Hct 41.1, MCV 93.7, MCH 29.7, MCHC 31.7 L, RDW 14.7, Plt Count 284, MPV 7.2 L, Neut % (Auto) 92.7 H, Lymph % (Auto) 3.9 L, [place] % (Auto) 1.1 L, Eos % (Auto) 2.0, Baso % (Auto) 0.4, Neut # (Auto) 5.1, Lymph # (Auto) 0.2 L, [place] # (Auto) 0.1, Eos # (Auto) 0.1, Baso # (Auto) 0.0, Sodium 135 L, Potassium 3.6, Chloride 109 H, Carbon Dioxide 25, Anion Gap 4.6 L, BUN 9, Creatinine 0.70, Estimated Creat Clear 149, Estimated GFR 96, Est GFR ( Amer) 117, Glucose 94, Calcium 8.5, Total Bilirubin 1.1, AST 40 H, ALT 38, Alkaline Phosphatase 78, Total Protein 6.4, Albumin 3.4 L, Globulin 3.0, Albumin/Globulin Ratio 1.1, Lipase 59, HCG, Quant < 2 05/06/24 07:37: Lactate 1.7 Orders (Tests/Meds): ED MEDICATIONS Generic Name Dose Route Start Last Admin Trade Name Bassamq PRN Reason Stop Dose Admin Ceftriaxone Sodium 1 gm/ 50 mls @ 100 mls/hr 05/06/24 08:30 05/06/24 08:24 Sodium Chloride IV 05/06/24 08:59 100 mls/hr ONCE ONE Administration Discontinued Medications Generic Name Dose Route Start Last Admin Trade Name Freq PRN Reason Stop Dose Admin Acetaminophen 1,000 mg 05/06/24 06:20 05/06/24 06:24 Acetaminophen 500mg Tab PO 05/06/24 06:21 1,000 mg ONCE ONE Administration Dexamethasone Sodium Phosphate 10 mg 05/06/24 07:52 05/06/24 08:04 Dexamethasone 4mg/Ml 1ml Vial IV 05/06/24 07:53 10 mg ONCE ONE Administration Diphenhydramine HCl 25 mg 05/06/24 07:46 05/06/24 08:03 Diphenhydramine 50mg/Ml Vial IV 05/06/24 07:47 25 mg ONCE ONE Administration Lactated Ringer's 1,000 mls @ 999 mls/hr 05/06/24 07:24 05/06/24 07:30 Lactated Ringer's 1000 Ml Bag IV 05/06/24 08:24 999 mls/hr .Q1H1M ONE Administration Ketorolac Tromethamine 30 mg 05/06/24 06:20 05/06/24 06:46 Ketorolac 30mg/Ml Vial IV 05/06/24 06:21 Not Given ONCE ONE Ketorolac Tromethamine 30 mg 05/06/24 06:20 05/06/24 06:25 Ketorolac 30mg/Ml Vial IM 05/06/24 06:21 30 mg ONCE ONE Administration Prochlorperazine Edisylate 10 mg 05/06/24 07:46 05/06/24 08:03 Prochlorperazine 10mg/2ml Vial IV 05/06/24 07:47 10 mg ONCE ONE Administration ORDERS Category Date Time Status Beta HCG, Quant [HCG,Quantitative] Stat Lab 05/06/24 07:31 Completed CBC w/Auto Diff [Complete Blood Count Auto Diff] Stat Lab 05/06/24 07:31 Results CMP [Comprehensive Metabolic Panel] Stat Lab 05/06/24 07:31 Completed Lactic Acid Stat Lab 05/06/24 07:37 Completed Lipase Stat Lab 05/06/24 07:31 Completed Rapid PCR Covid and Flu A/B Stat Lab 05/06/24 06:10 Completed UA [Urinalysis and Microscopic] Stat Lab 05/06/24 07:27 Completed Urine Culture Stat Micro 05/06/24 07:27 Received Medical Decision Narrative: 34-year-old female with history of asthma and hypothyroidism presents with 1 day of chills, body aches, she had some urinary symptoms yesterday. History was obtained via interactive discussion with patient. On arrival, patient is afebrile, hemodynamically stable but mildly tachycardic, satting appropriately, alert, oriented x4, GCS 15, moving all extremities spontaneously. Full physical exam performed and significant for clear lungs bilaterally, no flank pain Differential includes but is not limited to COVID, flu, viral illness, UTI, pyelonephritis. Patient was given Tylenol and IM Toradol for symptomatic management and correction of underlying abnormalities. Workup initiated including COVID flu swab, UA. At this time care handed off to oncoming physician Jed: I assumed primary responsibility for this patient after signout from previous physician. On my evaluation, patient initial blood pressure 99/50, but sleeping. Heart rate 117. Patient states that she has a mild headache, left flank pain. Has not been fever or chilling since she has been here in the emergency department. States that her symptoms include general shakes, left flank pain, body aches, urinary frequency. She states that she is prone to urinary tract infections. No vaginal discharge or bleeding. Has tubal ligation. Patient's abdomen is soft, nontender on my exam, bilateral flanks nontender. She does state that she stopped taking phentermine yesterday, 05/05 cold turkey without any type of weaning, also states that she uses albuterol frequently for her asthma. Thinks these may be related to heart rate and blood pressure changes. I agree, they may, however given low blood pressure, chills, urinary symptoms, etc., basic laboratory evaluation was initiated. On independent interpretation, nonactionable CBC, negative lactate and . Patient's urinalysis concerning for pyelonephritis. Patient given 1 g ceftriaxone IV. Because patient at baseline without signs or symptoms of clinical decompensation, deemed appropriate for discharge. Results were relayed to patient who voiced understanding and were agreeable to outpatient management and follow up. I discussed my clinical impression with patient and answered all questions. At this time, the evidence for any other entities in the differential is insufficient to warrant any further testing or ED observation. This was explained as well. Advisory was given that persistent or worsening symptoms require further evaluation. I confirmed the understanding of this discussion.. Procedures <Mikey Bailon MD - Last Filed: 05/06/24 07:04> Risk/Benefits of Procedure(s) Were Explained: Yes Critical Care <Mikey Bailon MD - Last Filed: 05/06/24 07:04> Critical Care Time Critical Care Time: No
[2024-05-06] MEDS: ACETAMINOPHEN 500MG TAB 1000 MG PO (06:24)
[2024-05-06] MEDS: KETOROLAC 30MG/ML VIAL 30 MG IM (06:25)
[2024-05-06 06:26] LABS: Coronavirus 19, PCR Not Detected (NotDetected); Influenza A, PCR Not Detected (NotDetected); Influenza B, PCR Not Detected (NotDetected)
[2024-05-06 07:11] VITALS: BP 102/51; PULSE 111; O2SAT 96
[2024-05-06] MEDS: LACTATED RINGERS 1000ML 1,000 ML 999 ML IV (07:30)
[2024-05-06 07:33] VITALS: BP 125/69; PULSE 111; O2SAT 98
--- NOTE | 2024-05-06 07:34 | PC.NURSE ---
Dr. Adkins at [facility]
[2024-05-06 07:48] LABS: Microscopic, Urine URINE MICROSCOPIC (MICROSCOPIC)
[2024-05-06 07:49] LABS: Appearance,Urine CLOUDY (Clear); Bilirubin,Urine Negative (Negative); Blood, Urine 3+ (Negative); Color,Urine YELLOW (Yellow); Glucose,Urine (UA) Negative (Negative); Ketones,Urine Negative (Negative); Leukocyte Esterase,Urine 2+ (Negative); Nitrate,Urine Negative (Negative); PH,Urine 6.5 (5.0-8.5); Protein,Urine 2+ (Negative)
[2024-05-06 07:49] LABS: Basophils % 0.4 % (0.1-2.0); Eosinophils # 0.1 K/mm3 (0.0-0.4); Hematocrit 41.1 % (37.0-47.0); Lymphocytes # 0.2 K/mm3 (0.7-4.5); Lymphocytes % 3.9 % (10-50); Mean Corpuscular HGB Conc 31.7 g/dL (31.8-35.4); Mean Corpuscular Hemoglobin 29.7 pg (27.0-31.2); Mean Corpuscular Volume 93.7 fl (81-99); Mean Platelet Volume 7.2 fl (7.4-10.4); Monocytes # 0.1 K/mm3 (0.1-1.0); Monocytes % 1.1 % (1.7-9.3); Neutrophils # 5.1 K/mm3 (1.8-7.8); Neutrophils % 92.7 % (37.0-80.0); Platelet Count 284 K/mm3 (142-424); Red Blood Count 4.38 M/mm3 (4.20-5.40); Red Cell Distribution Width 14.7 % (11.5-17.5); White Blood Count 5.5 K/mm3 (4.8-10.8)
[2024-05-06 07:52] LABS: MANUAL DIFFERENTIAL MANUAL DIFFERENTIAL (MANUAL DIFF)
[2024-05-06 07:58] LABS: Bacteria,Urine 1+ /lpf; WBC,Urine 20-50 #/hpf (0-3)
[2024-05-06 07:58] LABS: Lactic Acid 1.7 mmol/L (0.7-2.1)
[2024-05-06 07:59] LABS: Alanine Aminotransferase 38 U/L (12-78); Albumin Level 3.4 g/dl (3.5-5.0); Albumin/Globulin Ratio 1.1 (1.1-1.8); Alkaline Phosphatase 78 U/L (38-126); Anion Gap 4.6 mEq/L (5-15); Aspartate Amino Transferase 40 U/L (14-36); Bilirubin,Total 1.1 mg/dl (0.2-1.3); Blood Urea Nitrogen 9 mg/dl (7-17); Calcium 8.5 mg/dl (8.4-10.2); Carbon Dioxide 25 mmol/L (22.0-30.0); Chloride 109 mmol/L (98-107); Creatinine Clearance Estimated 149 mL/min (50-200); Estimated Glomerular Filt Rate 96 ml/min (>60); GFR (African American) 117 ML/MIN (>60); Glucose 94 mg/dl (74-100); Lipase 59 U/L (23-300); Potassium 3.6 mmoL/L (3.5-5.1); Sodium 135 mmol/L (136-145); Total Protein,Serum 6.4 g/dl (6.3-8.2)
[2024-05-06 08:00] VITALS: BP 101/52; PULSE 107; O2SAT 98
[2024-05-06] MEDS: diphenhydrAMINE 50MG/ML VIAL 25 MG IV (08:03)
[2024-05-06] MEDS: PROCHLORPERAZINE 10MG/2ML VIAL 10 MG IV (08:03)
[2024-05-06] MEDS: DEXAMETHASONE 4MG/ML 1ML VIAL 10 MG IV (08:04)
[2024-05-06 08:23] LABS: HCG,Quantitative < 2 mIU/ml (0-5.42)
[2024-05-06] MEDS: CEFTRIAXONE 1 GM 1 GM in 0.9 % SODIUM CHLORIDE 50 ML IV (08:24)
[2024-05-06 09:21] VITALS: BP 103/61; PULSE 68; RESP 18; TEMP 36.7; O2SAT 96
[2024-05-06 12:46] LABS: Eosinophils % 1 % (0-3); Lymphocytes % 5 % (10-50); Neutrophils % 94 % (42-76); Platelet Estimate Normal; RBC Morphology Normal; Total Cells Counted 100
--- NOTE | 2024-05-08 12:15 | PC.NURSE ---
URINE CULTURE DISCUSSED WITH DR CHAVIRA, NO NEW ORDERS
== END 2024-05-06 09:15 | disposition home or self-care (01) ==
PROVIDERS: Emergency Medicine; Emergency Provider Emergency Medicine; PCP Family Medicine
DX: N12 Tubulo-interstitial nephritis, not specified as acute or chronic (principal); R07.9 Chest pain, unspecified; R06.02 Shortness of breath; R68.83 Chills (without fever); R51.9 Headache, unspecified; J45.909 Unspecified asthma, uncomplicated; E03.9 Hypothyroidism, unspecified; R00.0 Tachycardia, unspecified
CPT/HCPCS: 80053; 81001; 83605; 83690; 84702; 85007; 85025; 85027; 87086; 87088; 87186; 87636; 96361; 96365; 96372; 96375; 99285; J0696; J0780; J1100; J1200; J1885; J7120

== ENCOUNTER 2024-07-12 10:32 | Emergency (ER) | payer BC, SELFPAY ==
[2024-07-12 10:53] VITALS: BP 136/71; PULSE 87; RESP 16; TEMP 37.1; O2SAT 98; BMI 30.7
--- NOTE | 2024-07-12 11:09 | EXP.UTC ---
Discharge Plan Disposition Patient Disposition: Home, Self-Care Condition: Good Prescriptions Prescriptions: New doxycycline hyclate 100 mg capsule 100 mg PO BID Qty: 20 0RF prednisone 20 mg tablet 20 mg PO BID 5 Days Qty: 10 0RF benzonatate 100 mg capsule 100 mg PO TID PRN (Reason: cough) Qty: 30 0RF guaifenesin [Mucinex] 600 mg tablet extended release 12hr 1,200 mg PO BID PRN (Reason: cough) Qty: 20 0RF No Action cefdinir 300 mg capsule 300 mg PO BID 10 Days Qty: 20 0RF Referrals Follow up/Referrals: Mir Dupont MD [Primary Care Provider] - See instructions Activity Restrictions/Add. Instructions Additional Instructions/Restrictions: *Monitor Temp, Over the counter Motrin or Tylenol as directed/as needed Tylenol every 4 hours and Motrin every 6 hours (as long as your family doctor has told you that you can take it) for fever or pain. and straight to ER if unable to lower temp less than 101.0 after medication given *Warm salt water gargles may help to soothe the throat *Throat Lozenges? *Warm fluids like tea with honey may help to soothe the throat? *Sleep elevated *Humidifier/Vaporizer Take medication as prescribed Follow up IMMEDIATELY for new or worsening symptoms or no Noticeable improvement over the next 48-72 hours. 911 for difficulty breathing or swallowing Clinical Impressions Clinical Impression: Sinusitis, Bronchitis Instructions Patient Instructions: DI for Sinusitis, Acute Bronchitis, Doxycycline Print Language Print Language: Serbian Discharge ED Provider: Kelly Jack [facility] [place] HPI General Stated complaint: chest congestion Mode of Arrival: Ambulatory Source of Information: Patient Limitations: No Limitations Time Seen by Provider: 07/12/24 11:09 Description of Symptoms (Recalled from Triage Doc. by RN): Reports chest congestion, cough and fatigue for a week. HEENT Symptoms (Recalled from RN notes): Yes Resp Symptoms (Recalled from RN notes): No Skin Symptoms (Recalled from RN notes): No MS Symptoms (Recalled from RN notes): No Functional Status (Recalled from RN notes): wnl History of Present Illness Provider Complaint: Patient states that she hasnt felt well States that she is having cough, chest congestion, dry throat, sinus congestion and drainage in ramiro back of her throat States today she wasnt feeling any better so she came in to get checked Related Data Previous Rx's ?Medication ?Instructions ?Recorded cefdinir 300 mg capsule 300 mg PO BID 10 days #20 caps 05/06/24 benzonatate 100 mg capsule 100 mg PO TID PRN cough #30 caps 07/12/24 doxycycline hyclate 100 mg capsule 100 mg PO BID #20 caps 07/12/24 guaifenesin 600 mg tablet, 1,200 mg (2 x 600 mg) PO BID PRN 07/12/24 extended release 12 hr (Mucinex) cough #20 tabs prednisone 20 mg tablet 20 mg PO BID 5 days #10 tabs 07/12/24 Allergies Allergy/AdvReac Type Severity Reaction Status Date / Time No Known Allergies Allergy Verified 09/20/21 11:50 Worker's Comp Is this a Worker's Comp case?: No [facility] Disclaimer: The information contained in this section may have been updated after the patient was seen, as this information can be updated by other users. Social History Smoking Status: Never smoker alcohol intake: current alcohol intake frequency: holidays/special occasions only substance use type: denies use current occupational status: employed Travel in the last 8 weeks: None household members: family ROS Obtained: Yes All systems reviewed & no additional complaints except as documented and Yes Systems reviewed as appropriate & no additional complaints except as documented Constitutional Constitutional: Reports system reviewed and no additional complaints, except as documented and Reports as per HPI ENT Ears, Nose, Mouth, and Throat: Reports system reviewed and no additional complaints, except as documented, Reports as per HPI, Reports nasal congestion and Reports nasal discharge Cardiovascular Cardiovascular: Reports system reviewed and no additional complaints, except as documented and Reports as per HPI Respiratory Respiratory: Reports system reviewed and no additional complaints, except as documented, Reports as per HPI, Reports chest congestion and Reports cough Gastrointestinal Gastrointestingal: Reports system reviewed and no additional complaints, except as documented and as per HPI Physical Exam General General appearance: alert and in no apparent distress ENT ENT exam: Present mucous membranes moist Expanded ENT Exam Nose exam: Present sinus tenderness Throat exam: Present other (Pharyngeal erythema noted with PND) Respiratory Respiratory exam: Present normal lung sounds bilaterally; Absent respiratory distress or wheezes Cardiovascular Cardiovascular exam: Present regular rate, normal rhythm and normal heart sounds Abdominal Exam Abdominal exam: Present soft and normal bowel sounds; Absent distention or tenderness Neurological Exam Neurological exam: Present alert, oriented X3 and normal gait Medical Decision Making Medical Records Screening: Per USPSTF and CDC recommendations, given the prevalence of disease in our region, it is our hospital?s policy to screen for HIV and viral Hepatitis for all patients aged 18 and over and those with ongoing risk factors. Helder Inquiry Pt receiving controlled substance: No Helder was queried for this patient: No Vital Signs: 07/12/24 10:53 Temperature 98.8 F Temperature Source Oral Pulse Rate [Radial] 87 Respiratory Rate 16 Blood Pressure [Right Arm] 136/71 Blood Pressure Mean [Right Arm] 92 Blood Pressure Source [Right Arm] Automatic Cuff Blood Pressure Position [Right Arm] Sitting 02 Sat by Pulse Oximetry 98 Oxygen Delivery Method Room Air
[2024-07-12 11:20] VITALS: BP 136/71; PULSE 87; RESP 16; TEMP 37.1; O2SAT 98
== END 2024-07-12 11:21 | disposition home or self-care (01) ==
PROVIDERS: Emergency Provider Nurse Practitioner; PCP Family Medicine
DX: J40 Bronchitis, not specified as acute or chronic (principal); J01.90 Acute sinusitis, unspecified; R05.9 Cough, unspecified; R53.83 Other fatigue; R09.81 Nasal congestion
CPT/HCPCS: 99212; G0381